=== PATIENT | female | born 1965 | race Caucasian/White ===

== ENCOUNTER → 2020-10-29 | Outpatient (CLI) | payer BC ==
--- NOTE | 2020-10-29 17:04 | CARD ---
MR#: [id number] Date of Study: 10/29/2020 Ordering Physician: DAVID LUCAS, Referring Physician: DAVID LUCAS, Tech: Alec Clark [facility] APPROVED REPORT EXAM: Two-dimensional and M-mode echocardiogram with Doppler and color Doppler. Other Information Quality : AverageHR: 59bpm Rhythm : NSR INDICATION Chronic fatigue 2D DIMENSIONS Left Atrium(2D)3.6 (1.6-4.0cm)IVSd1.0 (0.7-1.1cm) Aortic Root(2D)3.3 (2.0-3.7cm)LVDd4.3 (3.9-5.9cm) LVOT Diameter2.0 (1.8-2.4cm)PWd1.0 (0.7-1.1cm) LVDs2.9 (2.5-4.0cm)FS (%) 31.8 % SV50.4 mlLVEF(%)60.2 (>50%) Aortic Valve AoV Peak Mars.120.6cm/sAoV VTI24.3cm AO Peak GR.5.8mmHgLVOT Peak Mars.84.9cm/s AO Mean GR.3mmHgAVA (VMAX)2.31cm2 Mitral Valve MV E Kwpoartq70.7cm/sMV E Peak Gr.3mmHg MV DECEL [id number] A Zwjhmcfb11.6cm/s MV E Mean Gr.1mmHgE/A Ratio0.9 Pulmonary Valve PV Peak Mrbinlhl49.9cm/s Tricuspid Valve TR P. Kwffswpl975of/sTR Peak Gr.17mmHg Pulmonary Vein S1 Tkwlhtsx71.7cm/sD2 Sghjqryf55.2cm/s LEFT VENTRICLE The left ventricle is normal size. There is normal left ventricular wall thickness. The left ventricu lar systolic function is normal and the ejection fraction is within normal range. LV ejection fractio n is 50-55%. There is normal LV segmental wall motion. The left ventricular diastolic function and fi lling is normal for age. No left ventricle thrombus noted on this study. There is no ventricular sept al defect visualized. There is no left ventricular aneurysm. There is no mass noted in the left ventr icle. RIGHT VENTRICLE The right ventricle is normal size. There is normal right ventricular wall thickness. The right ventr icular systolic function is normal. ATRIA The left atrium size is normal. The right atrium size is normal. The interatrial septum is intact wit h no evidence for an atrial septal defect or patent foramen ovale as noted on 2-D or Doppler imaging. AORTIC VALVE The aortic valve is normal in structure and function. Doppler and Color Flow revealed no significant aortic regurgitation. There is no significant aortic valvular stenosis. There is no aortic valvular v egetation. MITRAL VALVE The mitral valve is normal in structure and function. There is no evidence of mitral valve prolapse. There is no mitral valve stenosis. Doppler and Color-flow revealed trace to mild mitral regurgitation . TRICUSPID VALVE The tricuspid valve is normal in structure and function. Doppler and Color Flow revealed trace tricus pid regurgitation. There is no tricuspid valve prolapse or vegetation. There is no tricuspid valve st enosis. PULMONIC VALVE The pulmonary valve is normal in structure and function. Trivial pulmonic regurgitation There is no p ulmonic valvular stenosis. GREAT VESSELS The aortic root is normal in size. The ascending aorta is normal in size. The pulmonary artery is nor mal. The IVC is normal in size and collapses >50% with inspiration. PERICARDIAL EFFUSION There is no pleural effusion. There is no evidence of significant pericardial effusion. Critical Notification Critical Value: No <Conclusion> The left ventricle is normal size. The left ventricular systolic function is normal and the ejection fraction is within normal range. LV ejection fraction is 50-55%. There is normal LV segmental wall motion. Doppler and Color Flow revealed no significant aortic regurgitation. There is no significant aortic valvular stenosis. Doppler and Color-flow revealed trace to mild mitral regurgitation. Doppler and Color Flow revealed trace tricuspid regurgitation. Signed by : Raphael Zimmer MD Electronically Approved : 10/29/2020 17:03:40
== END ==
LOC: ECHO 13:47
PROVIDERS: ATTEND Family Medicine
DX: I08.8 Other rheumatic multiple valve diseases (principal); R53.82 Chronic fatigue, unspecified
CPT/HCPCS: 93306